=== PATIENT | female | born 1980 | race Hispanic/Latino ===

== ENCOUNTER 2017-02-05 13:01 | Emergency (ER) | payer SELFPAY ==
[~2017-02-05] VITALS: Ht 144.8 cm; Wt 90.9 kg
[~2017-02-05 13:01] MED LIST: METFORMIN500 MG PO; PRENATA4 PO
[2017-02-05] MEDS ORDERED: CIPROFLOXACN250 MG PO (13:24)
[2017-02-05] MEDS ORDERED: METOPROL TAR25 MG PO (13:24)
[2017-02-05] MEDS ORDERED: AZO URINARY PAI95 MG PO (13:25)
[2017-02-05 13:49] LABS: URINE BILIRUBIN - DIPSTICK NEGATIVE (NEGATIVE); URINE BLOOD DIPSTICK MODERATE (NEGATIVE); URINE COLOR YELLOW; URINE GLUCOSE - DIPSTICK 500 mg/dL (NEGATIVE); URINE KETONE NEGATIVE (NEGATIVE); URINE LEUK ESTERASE NEGATIVE (NEGATIVE); URINE PROTEIN - DIPSTICK 30 mg/dL (NEG-TRACE); URINE SPECIFIC GRAVITY >=1.030; URINE UROBILINOGEN - DIPSTICK 0.2 E.U./dL (0.2)
[2017-02-05 13:50] LABS: URINE CLARITY TURBID; URINE NITRITE - DIPSTICK POSITIVE (Negative)
[2017-02-05 13:51] LABS: URINE BACTERIA FEW hpf; URINE SQUAMOUS EPITHELIAL CELL FEW EPI/hpf (0-FEW)
[2017-02-05 14:40] LABS: HEMATOCRIT 41.5 % (37.0-47.0); IMMATURE GRANULOCYTES 0.4 % (0.0-1.0); MEAN CELL VOLUME 90.8 fL CALC (80.0-100.0); MEAN CORPUSCULAR HGB 30.6 pG CALC (26.0-32.0); MEAN CORPUSCULAR HGB CONC 33.7 g/L CALC (32.0-36.0); NEUT# 4.84 thou/uL (2.00-7.15); RED BLOOD COUNT 4.57 mill/uL (4.20-5.60); RED CELL DISTRI WIDTH 12.6 % (11.5-15.5)
[2017-02-05 14:59] LABS: ALBUMIN 4.3 g/dL (3.2-5.0); ALKALINE PHOSPHATASE 80 u/l (38-126); ANION GAP 16 (6-22 (CALC)); BILIRUBIN, TOTAL 0.7 mg/dL (0.0-1.4); BUN 13 mg/dL (7-17); BUN/CREATININE RATIO 31 (12-20 (CALC)); CALCIUM 10.1 mg/dL (8.4-10.2); CARBON DIOXIDE 22 mmol/l (22-30); CHLORIDE 103 mmol/l (95-108); CREATININE 0.4 mg/dL (0.5-1.0); GFR > 60 ML/MIN (>=60 (CALC)); GFR FOR AFR.AMER. > 60 ML/MIN (>=60 (CALC)); GLUCOSE 187 mg/dL (65-105); POTASSIUM 4.1 mmol/l (3.5-5.1); SGOT/AST 63 u/l (14-36); SGPT/ALT 85 u/l (9-52); SODIUM 137 mmol/l (137-146)
[2017-02-05] MEDS ORDERED: PYRIDIUM200 MG PO (15:09)
[2017-02-05] MEDS ORDERED: BACTRIM DS1 TAB PO (15:09)
[2017-02-05 15:20] VITALS: BP 126/74
== END 2017-02-05 15:20 | disposition home or self-care (01) | DRG 690 ==
LOC: ED 13:01
PROVIDERS: Emergency Medicine
DX: N39.0 Urinary tract infection, site not specified (principal); R50.9 Fever, unspecified; R30.0 Dysuria; R10.9 Unspecified abdominal pain; R39.15 Urgency of urination

== ENCOUNTER 2017-09-26 13:52 | Emergency (ER) | payer SELFPAY ==
[~2017-09-26] VITALS: Ht 144.8 cm; Wt 90.4 kg
[~2017-09-26 13:52] MED LIST changes: +AZO URINARY PAI95 MG PO; +BACTRIM DS1 TAB PO; +CIPROFLOXACN250 MG PO; +METOPROL TAR25 MG PO; +PYRIDIUM200 MG PO
[2017-09-26] MEDS ORDERED: AMOXICILLIN500 M2 (14:21)
[2017-09-26] MEDS ORDERED: BACTRIM DS1 TAB PO (16:06)
[2017-09-26 16:15] VITALS: BP 108/70
[2017-09-26] MEDS ORDERED: FLONASE AL50 MCG/ACT (16:15)
== END 2017-09-26 16:20 | disposition home or self-care (01) | DRG 153 ==
LOC: ED 13:52
DX: J32.9 Chronic sinusitis, unspecified (principal); E11.9 Type 2 diabetes mellitus without complications

== ENCOUNTER 2018-12-07 21:10 | Emergency (ER) | payer SELFPAY ==
[~2018-12-07] VITALS: Ht 144.8 cm; Wt 88.0 kg
[~2018-12-07 21:10] MED LIST changes: +AMOXICILLIN500 M2; +FLONASE AL50 MCG/ACT
[2018-12-07] MEDS ORDERED: GLIPIZIDE ER10 M1 PO (22:14)
[2018-12-07] MEDS ORDERED: DIFLUCAN150 MG PO (22:15)
[2018-12-07 23:54] LABS: URINE BILIRUBIN - DIPSTICK NEGATIVE (NEGATIVE); URINE BLOOD DIPSTICK NEGATIVE (NEGATIVE); URINE COLOR YELLOW; URINE GLUCOSE - DIPSTICK 500 mg/dL (NEGATIVE); URINE KETONE TRACE mg/dL (NEGATIVE); URINE LEUK ESTERASE NEGATIVE (NEGATIVE); URINE NITRITE - DIPSTICK NEGATIVE (Negative); URINE PH 5.5 (4.5-8.0); URINE PROTEIN - DIPSTICK NEGATIVE (NEG-TRACE); URINE SPECIFIC GRAVITY 1.025; URINE UROBILINOGEN - DIPSTICK 0.2 E.U./dL (0.2)
[2018-12-08] MEDS ORDERED: PYRIDIUM200 MG PO (00:43)
[2018-12-08] MEDS ORDERED: BACTRIM DS1 TAB PO (00:43)
[2018-12-08 00:56] VITALS: BP 128/79
== END 2018-12-08 00:57 | disposition home or self-care (01) | DRG 690 ==
LOC: ED 21:10
PROVIDERS: Emergency Medicine
DX: N34.2 Other urethritis (principal)

== ENCOUNTER 2019-10-14 | Emergency (ER) | payer SELFPAY ==
[~2019-10-14] MED LIST changes: +DIFLUCAN150 MG PO; +GLIPIZIDE ER10 M1 PO
[2019-10-14 23:37] LABS: IMMATURE GRANULOCYTES 0.4 % (0.0-5.0); MEAN CELL VOLUME 86.6 fL CALC (80.0-100.0); MEAN CORPUSCULAR HGB 28.5 pG CALC (26.0-32.0); NEUT# 3.21 thou/uL (2.00-7.15); RED BLOOD COUNT 4.03 mill/uL (4.20-5.60); RED CELL DISTRI WIDTH 13.1 % (11.5-15.5)
[2019-10-14 23:40] LABS: HEMATOCRIT 34.9 % (37.0-47.0); HEMOGLOBIN 11.5 g/dl (12.0-16.0)
[2019-10-14 23:49] LABS: ALBUMIN 3.6 g/dL (3.2-5.0); ALKALINE PHOSPHATASE 78 u/l (38-126); ANION GAP 14 (6-22 (CALC)); BUN 13 mg/dL (7-17); BUN/CREATININE RATIO 56 (12-20 (CALC)); CARBON DIOXIDE 23 mmol/l (22-30); CHLORIDE 104 mmol/l (95-108); CREATININE 0.2 mg/dL (0.5-1.0); GFR > 60 ML/MIN (>=60 (CALC)); GFR FOR AFR.AMER. > 60 ML/MIN (>=60 (CALC)); POTASSIUM 4.1 mmol/l (3.5-5.1); SGOT/AST 25 u/l (14-36); SODIUM 136 mmol/l (137-146)
[2019-10-14 23:50] LABS: BILIRUBIN, TOTAL 0.4 mg/dL (0.0-1.4)
[2019-10-14] MEDS ORDERED: FIORICET PO (23:57)
== END 2019-10-15 00:45 | disposition home or self-care (01) | DRG 103 ==
PROVIDERS: Emergency Medicine
DX: R51 Headache (principal); I10 Essential (primary) hypertension; E11.9 Type 2 diabetes mellitus without complications; T50.916A Underdosing of multiple unspecified drugs, medicaments and biological substances, initial encounter; Z91.128 Patient's intentional underdosing of medication regimen for other reason